=== PATIENT | female | born 1975 ===

== ENCOUNTER → 2018-02-15 | Outpatient (CLI) | payer OTHER ==
[~2018-02-15] MED LIST: AMOX1TAB12 PO; CATAFLAM50 MG PO; GILTUSS TR TAB1 EACH PO; ORPH100T PO; TORADOL60 MG IM; ZYRTEC10 MG PO
== END | disposition home or self-care (01) ==
LOC: PPHC 14:55
DX: J00 Acute nasopharyngitis [common cold] (principal)